=== PATIENT | male | born 1995 | race Caucasian/White ===

== ENCOUNTER 2022-09-06 11:13 | Outpatient (REF) | payer OTHER, SELFPAY ==
--- NOTE | 2022-09-06 12:23 | MHC.AU.HFU ---
Hearing Instrument Follow-Up- Binaural Date of Visit: 09/06/22 Follow-Up Summary: The patient is here for swim molds as he gets recurrent ear infections from getting water in his ears when showering. [facility] recommending swim molds per case history. Patient is accompanied by 2 staff members from [facility]. Impressions were taken bilaterally without incident. Will order swim plugs from [facility] (right red, left blue). Care givers to be called at [phone] to schedule ear mold fitting once they arrive in clinic. Bill insurance. Diagnosis Code(s): Primary Diagnosis: H69.90 Unspecified Eustachian Tube Dysfunction, Unspecified Ear Signature: Provider: Jose Palencia, CCC-A
== END 2022-09-06 11:14 | disposition home or self-care (01) ==
LOC: HO.HAP 11:13
PROVIDERS: PCP Internal Medicine; Visit Provider Internal Medicine
DX: Z46.1 Encounter for fitting and adjustment of hearing aid (principal); H69.93 Unspecified Eustachian tube disorder, bilateral
CPT/HCPCS: V5275

== ENCOUNTER 2022-11-08 10:00 | Outpatient (REF) | payer OTHER, SELFPAY ==
--- NOTE | 2022-11-08 10:17 | MHC.AU.HA3 ---
Hearing Instrument Follow-Up- Binaural Date of Visit: 11/08/22 Follow-Up Summary: Fit custom swim plugs. Good fit in office. Advised on use (e.g., surface swimming, bathing, no diving or deep water). Primary use will be for bathing. Instructed custodial staff members how to insert and remove. Advised of warranty period and recommended returning if redness or sores develop due to fit a plugs. Recommendations: Please contact our clinic with any questions or concerns. Diagnosis Code(s): Primary Diagnosis: H69.90 Unspecified Eustachian Tube Dysfunction, Unspecified Ear Signature: Provider: Sabina Castellanos, [facility]
== END 2022-11-08 10:01 | disposition home or self-care (01) ==
LOC: HO.HAP 10:00
PROVIDERS: Visit Provider Internal Medicine
DX: Z46.1 Encounter for fitting and adjustment of hearing aid (principal); H69.90 Unspecified Eustachian tube disorder, unspecified ear
CPT/HCPCS: V5264